=== PATIENT | female | born 1945 | race Caucasian/White ===

== ENCOUNTER → 2016-04-29 | Outpatient (CLI) | payer MEDICARE, BC ==
[~2016-04-29] MED LIST: ASPIRIN 32325 MG/TAB PO; COZAAR 25MG25 MG/TAB PO; DIOVAN 40MG40 MG PO; EPA FISH OIL1000 MG PO; FOSAMAX 10M10 MG/TAB PO; HCTZ 25MG25 MG PO; IRON325 MG PO; LEVOXYL0.05 MG PO; LIPITOR 80MG80 MG PO; LIPITOR20 MG PO; LISINOPRIL5 MG PO; LOPRESSOR 225 MG/TAB PO; METOPROLOL25 MG PO; MULTIPLE VITAMI1 CAP PO; PAXIL10 MG PO; PAXIL40 MG PO; PEPCID 20MG TAB20 MG PO; PLAVIX 75MG TAB75 MG PO; SYNTHROID0.05 MG PO; SYNTHROID0.05 MG/TA PO; TOPROL XL 25MG25 MG PO; VITAMIN D1000 IU PO
== END ==
LOC: MC.RAD 14:25
DX: Z12.31 Encounter for screening mammogram for malignant neoplasm of breast (principal); N64.89 Other specified disorders of breast

== ENCOUNTER → 2016-05-06 | Outpatient (CLI) | payer MEDICARE, BC | LOC: MC.RAD 14:00 | DX: Z53.9 Procedure and treatment not carried out, unspecified reason (principal) ==

== ENCOUNTER → 2016-07-07 | Outpatient (CLI) | payer MEDICARE, BC | LOC: BHSO 07:52 | DX: F33.1 Major depressive disorder, recurrent, moderate (principal) | CPT/HCPCS: 90791-AI ==

== ENCOUNTER → 2016-08-13 | Outpatient (CLI) | payer MEDICARE, BC | LOC: BHSO 13:39 | DX: F33.41 Major depressive disorder, recurrent, in partial remission (principal) ==

== ENCOUNTER → 2016-09-12 | Outpatient (CLI) | payer MEDICARE, BC | LOC: BHSO 14:45 | DX: F33.42 Major depressive disorder, recurrent, in full remission (principal) ==

== ENCOUNTER → 2016-12-10 | Outpatient (CLI) | payer MEDICARE, BC | LOC: BHSO 15:02 | DX: F33.42 Major depressive disorder, recurrent, in full remission (principal) ==

== ENCOUNTER → 2017-03-11 | Outpatient (CLI) | payer MEDICARE, BC | LOC: BHSO 14:46 | DX: F33.41 Major depressive disorder, recurrent, in partial remission (principal) ==

== ENCOUNTER → 2017-04-08 | Outpatient (CLI) | payer MEDICARE, BC | LOC: BHSO 14:34 | DX: F33.42 Major depressive disorder, recurrent, in full remission (principal) ==

== ENCOUNTER → 2017-07-07 | Outpatient (CLI) | payer MEDICARE, BC | LOC: BHSO 13:47 | DX: F33.42 Major depressive disorder, recurrent, in full remission (principal) | CPT/HCPCS: G0463 ==

== ENCOUNTER → 2018-01-06 | Outpatient (CLI) | payer MEDICARE, BC | LOC: BHSO 13:18 | DX: F41.1 Generalized anxiety disorder (principal) | CPT/HCPCS: G0463 ==

== ENCOUNTER → 2018-06-30 | Outpatient (CLI) | payer MEDICARE, BC | LOC: BHSO 13:29 | DX: F33.42 Major depressive disorder, recurrent, in full remission (principal) | CPT/HCPCS: G0463 ==

== ENCOUNTER 2018-09-16 13:30 | Outpatient (RCR) | payer MEDICARE, BC | END 2018-11-14 | disposition still patient (30) | LOC: MKS.ESL.PT | DX: M76.30 Iliotibial band syndrome, unspecified leg (principal) ==

== ENCOUNTER → 2018-12-08 | Outpatient (CLI) | payer MEDICARE, BC | LOC: COL.RAD 07:01 | DX: J43.9 Emphysema, unspecified (principal); R91.8 Other nonspecific abnormal finding of lung field; R59.0 Localized enlarged lymph nodes | CPT/HCPCS: Q9967 ==

== ENCOUNTER → 2018-12-31 | Outpatient (CLI) | payer MEDICARE, BC | LOC: BHSO 14:01 | DX: F33.42 Major depressive disorder, recurrent, in full remission (principal) | CPT/HCPCS: G0463 ==

== ENCOUNTER → 2019-02-21 | Outpatient (CLI) | payer MEDICARE, BC | LOC: MC.RAD 12:46 | DX: Z12.31 Encounter for screening mammogram for malignant neoplasm of breast (principal) ==

== ENCOUNTER → 2019-03-02 | Outpatient (CLI) | payer MEDICARE, BC | LOC: BHSO 14:20 | DX: F41.1 Generalized anxiety disorder (principal) | CPT/HCPCS: G0463 ==

== ENCOUNTER → 2019-06-01 | Outpatient (CLI) | payer MEDICARE, BC | LOC: BHSO 13:39 | DX: F41.1 Generalized anxiety disorder (principal) | CPT/HCPCS: G0463 ==

== ENCOUNTER → 2019-11-23 | Outpatient (CLI) | payer MEDICARE, BC | LOC: BHSO 14:20 | DX: F33.41 Major depressive disorder, recurrent, in partial remission (principal) | CPT/HCPCS: G0463 ==

== ENCOUNTER → 2019-12-23 | Outpatient (CLI) | payer MEDICARE, BC | LOC: BHSO 14:28 | DX: F33.42 Major depressive disorder, recurrent, in full remission (principal) | CPT/HCPCS: G0463 ==

== ENCOUNTER → 2021-02-26 | Outpatient (CLI) | payer MEDICARE, BC | LOC: MC.RAD 14:44 | DX: Z12.31 Encounter for screening mammogram for malignant neoplasm of breast (principal) ==

== ENCOUNTER 2021-07-04 14:03 | Outpatient (CLI) | payer MEDICARE, BC ==
[~2021-07-04] VITALS: Ht 157.5 cm; Wt 58.2 kg
[~2021-07-04 14:03] MED LIST changes: -MULTIPLE VITAMI1 CAP PO; +MULTIPLE VITAMI1 TA5 PO
[2021-07-04 14:13] VITALS: BP 118/78; PULSE 86; TEMP 97.8
[2021-07-04] MEDS ORDERED: CYMBALTA 60MG60 MG PO (14:24)
[2021-07-04] MEDS ORDERED: TOPROL XL 25MG25 MG PO (14:24)
[2021-07-04] MEDS ORDERED: NORCO 325 MG-7.1 TAB PO (14:25)
[2021-07-04] MEDS ORDERED: ABILIFY 10MG TA10 MG PO (14:25)
[2021-07-04] MEDS ORDERED: WELLBUTRIN XL150 MG PO (14:25)
[2021-07-04] MEDS ORDERED: SYNTHROID0.075 MG/T PO (14:26)
[2021-07-04] MEDS ORDERED: ASPIRIN 32325 MG/TA1 PO (14:28)
[2021-07-04] MEDS ORDERED: VITAMIN D31000 IU PO (14:28)
[2021-07-04] MEDS ORDERED: SPIRIVA RE2.5 MCG/Ac IH (14:29)
[2021-07-04] MEDS ORDERED: IMDUR 30MG30 MG/TAB PO (14:29)
--- NOTE | 2021-07-04 14:50 | NUR ---
Pt remanined in dept following 30 min observation period after initial prolia injection. She tolerated med without issue. She is escorted out of dept with steady gait.
== END 2021-07-04 15:00 | disposition home or self-care (01) ==
LOC: EUO 14:03
DX: M81.0 Age-related osteoporosis without current pathological fracture (principal)
CPT/HCPCS: J0897

== ENCOUNTER → 2023-04-06 | Outpatient (CLI) | payer MEDICARE, BC ==
[~2023-04-06] MED LIST changes: +ABILIFY 10MG TA10 MG PO; +ASPIRIN 32325 MG/TA1 PO; +CYMBALTA 60MG60 MG PO; +IMDUR 30MG30 MG/TAB PO; +NORCO 325 MG-7.1 TAB PO; +RANEXA 500MG T500 MG PO; +SPIRIVA RE2.5 MCG/Ac IH; +SYNTHROID0.075 MG/T PO; +VITAMIN D31000 IU PO; +WELLBUTRIN XL150 MG PO
== END ==
LOC: MC.RAD 13:45
DX: Z12.31 Encounter for screening mammogram for malignant neoplasm of breast (principal)